=== PATIENT | female | born 1945 | race American Indian/Alaskan Native ===

== ENCOUNTER 2017-07-22 10:10 | Emergency (ER) | payer MEDICARE ==
[2017-07-22 10:21] VITALS: BP 145/88; PULSE 84; RESP 20; TEMP 98.3; O2SAT 95
--- NOTE | 2017-07-22 12:57 | C.PDOC ---
History Of Present Illness Pt has RLE swelling. She was seen in this ED 1 week ago and had a negative duplex US and was told to return today for repeat US to r/o DVT. Time Seen by Provider: 07/22/17 10:52 Chief Complaint (Nursing): Lower Extremity Problem/Injury History Per: Patient, Family Onset/Duration Of Symptoms: Days (about 2 weeks) Current Symptoms Are (Timing): Still Present Severity: Moderate Associated Symptoms: Ankle/Leg Swelling Reports Recently: Seen In ED Additional History Per: Prior Records Past Medical History Reviewed: Historical Data, Nursing Documentation, Vital Signs Vital Signs: Last Vital Signs Temp 98.3 F 07/22/17 10:16 Pulse 84 07/22/17 10:16 Resp 20 07/22/17 10:16 BP 145/88 07/22/17 10:16 Pulse Ox 95 07/22/17 10:16 - Medical History PMH: HTN, Hypercholesterolemia Family History: States: Unknown Family Hx - Social History Hx Alcohol Use: No Hx Substance Use: No Review Of Systems Except As Marked, All Systems Reviewed And Found Negative. Constitutional: Negative for: Fever, Weakness Cardiovascular: Negative for: Chest Pain Respiratory: Negative for: Shortness of Breath Gastrointestinal: Negative for: Vomiting, Abdominal Pain Musculoskeletal: Negative for: Neck Pain, Back Pain, Leg Pain Skin: Negative for: Rash Neurological: Negative for: Weakness, Numbness Physical Exam - Physical Exam Appears: Non-toxic, No Acute Distress Skin: Normal Color, Warm, Dry, No Rash Head: Atraumatic, Normacephalic Eye(s): bilateral: PERRL, EOMI Neck: Normal ROM, Supple Cardiovascular: Rhythm Regular Respiratory: Normal Breath Sounds, No Accessory Muscle Use Gastrointestinal/Abdominal: Soft, No Tenderness Back: No CVA Tenderness Extremity: Normal ROM, No Calf Tenderness, No Deformity, Swelling (RLE) Extremity: Bilateral: Normal Color And Temperature Pulses: Left Dorsalis Pedis: Normal, Right Dorsalis Pedis: Normal Neurological/Psych: Oriented x3, Normal Motor, Normal Sensation ED Course And Treatment O2 Sat by Pulse Oximetry: 95 Pulse Ox Interpretation: Normal - CT Scan/US RLE Duplex US Other Rad Studies (CT/US): Radiology Report Reviewed CT/US Interpretation: Negative for DVT. Disposition Counseled Patient/Family Regarding: Studies Performed, Diagnosis, Need For Followup - Disposition Referrals: Kenny Roca MD [Staff Provider] - Disposition: HOME/ ROUTINE Disposition Time: 12:57 Condition: STABLE Additional Instructions: Elevate your right leg whenever possible. Follow up with your doctor for further evaluation and treatment. Return to the ER if you develop redness, pain , shortness of breath, worsening of symptoms or if you have any other concerns. Instructions: Leg Edema (ED) Forms: [employer] (Urdu) - Clinical Impression Clinical Impression: Swelling of right lower extremity
--- NOTE | 2017-07-22 15:27 | VASCLAB ---
PROCEDURE: Right Lower Extremity Venous Duplex Exam. HISTORY: RLE swelling, r/o DVT PRIORS: None. TECHNIQUE: Right common femoral, femoral, popliteal and posterior tibial, peroneal and great saphenous veins were evaluated. Flow was assessed with color Doppler, compressibility, assessment of phasic flow and augmentation response. Report prepared by JOSE CARLOS aWtt, RVT FINDINGS: RIGHT: 1. Common Femoral Vein: 1.1. Compressibility - Fully compressible: Thrombus - None: Flow - Phasic: Augmentation -Normal: Reflux - None. 2. Femoral Vein: 2.1. Compressibility - Fully compressible: Thrombus - None: Flow - Phasic: Augmentation -Normal: Reflux - None. 3. Popliteal Vein: 3.1. Compressibility - Fully compressible: Thrombus - None: Flow - Phasic: Augmentation -Normal: Reflux - None. 4. Posterior Tibial Vein: 4.1. Compressibility - Fully compressible: Thrombus - None: Flow - Phasic: Augmentation -Normal: Reflux - None. 5. Peroneal Vein: 5.1. Compressibility - Fully compressible: Thrombus - None: Flow - Phasic: Augmentation -Normal: Reflux - None. 6. Great Saphenous Vein: 6.1. Compressibility - Fully compressible: Thrombus -None: Flow - Phasic: Augmentation - Normal: Reflux - None. OTHER FINDINGS: IMPRESSION: No evidence of deep or superficial vein thrombosis of the right lower extremity with excellent venous flow. Normal valve function noted of the right side. Normal venous flow noted in the left common femoral vein.
== END 2017-07-22 13:09 | disposition home or self-care (01) ==
LOC: C.ER 10:10
DX: M79.89 Other specified soft tissue disorders (principal)